=== PATIENT | male | born 1990 | race African-American/Black ===

== ENCOUNTER 2019-10-16 10:31 | Inpatient (IN) | payer BC ==
[2019-10-16 11:25] LABS: #Lymphocytes 1.4 thou/uL (1.20-3.40); #Monocytes 0.5 thou/uL (0.11-0.59); #Neutrophils 3.8 thou/uL (1.40-6.50); %Basophils 0.6 % (0.0-1.0); %Eosinophils 0.3 % (0.0-10.0); %Lymphocytes 24.8 % (21.0-51.0); %Monocytes 8.1 % (0.0-10.0); %Neutrophils 66.3 % (42.0-75.0); Hemoglobin 16.5 g/dL (14.0-18.0); Mean Corpuscular HGB CONC 34.1 g/dL (32.0-36.0); Mean Corpuscular Hemoglobin 30.4 pg (27.0-31.0); Mean Platelet Volume 8.3 fL (7.4-10.4); Platelet Count 242 thou/uL (130-400); RBC Distribution Width 12.8 % (11.5-14.5); Red Blood Cell (RBC) Count 5.44 mill/uL (4.70-6.10); White Blood Cell (WBC) Count 5.7 thou/uL (4.8-10.8)
[2019-10-16 11:30] LABS: Base Excess-Venous -13.5 mmol/L (-2.0 to 3.0); Bicarbonate (HCO3v) 12.4 mmol/L (22.0-28.0); CO2 Tension (PvCO2) 29.3 mmHg (40.0-50.0); Calcium, Ionized 1.21 mmol/L (See Comments:); Chloride 104 mmol/L (98-107); Hemoglobin - Calc 17.3 g/dL (14.0-18.0); Potassium 4.2 mmol/L (3.5-5.1); Sodium 131 mmol/L (138-145); T. Carbon Dioxide 13.3 mmol/L (22.0-28.0); vO2 Saturation-calc 73.7 % (60.0-85.0)
--- NOTE | 2019-10-16 11:37 | RAD ---
PORTABLE CHEST 1 VIEW: DATE: 10/16/2019. TIME: 10:56 AM. HISTORY: Altered mental status. FINDINGS: The heart size is normal. The lungs are expanded and clear. The bony thorax is normal. IMPRESSION: Normal exam. POS: [facility]
[2019-10-16] MEDS ORDERED: Insulin Regular 300 UNITS/3 ML VIAL ONE ×2 (11:44→11:45)
[2019-10-16 11:46] LABS: ALT (SGPT) 40 U/L (8-55); AST (SGOT) 18 U/L (5-34); Alkaline Phosphatase 98 U/L (40-110); Anion Gap 22 mmol/L (10-20); BUN (Urea Nitrogen) 21 mg/dL (8.9-20.6); Bilirubin, Total 0.6 mg/dL (0.2-1.2); Calc. Creatinine Clearance 0 mL/min (70-130); Calcium 9.3 mg/dL (7.8-10.44); Carbon Dioxide 11 mmol/L (22-29); Chloride 101 mmol/L (98-107); Estimated GFR-MDRD 50; Globulin 3.7 g/dL (2.4-3.5); Glucose 368 mg/dL (70-105); Lipase 56 U/L (8-78); Magnesium 2.1 mg/dL (1.6-2.6); Phosphorus 2.6 mg/dL (2.3-4.7); Potassium 4.1 mmol/L (3.5-5.1); Protein, Total 8.7 g/dL (6.0-8.3); Sodium 130 mmol/L (136-145)
[2019-10-16 11:50] LABS: Bacteria/HPF None Seen HPF (None Seen); Bilirubin Negative (Negative); Blood, Urine 1+ (Negative); Clarity Clear (Clear); Glucose, Urine (Dipstick) Greater than 1000 mg/dL (Negative); Leukocyte Negative Leu/uL (Negative); Nitrite Negative (Negative); Protein, Urine (Dipstick) 30 mg/dL (Neg-Trace); RBC/HPF None Seen HPF (0-3); Squamous Epithelial None Seen HPF (0-3); Urobilinogen Normal mg/dL (Less than 2); WBC/HPF 0-3 HPF (0-3)
[2019-10-16] MEDS ORDERED: Insulin Regular 100 units/100 ml in NS IVPB SCH (12:00)
[2019-10-16] MEDS ORDERED: Ondansetron PF 4 MG/2 ML Vial IVP PRN (14:00)
[2019-10-16] MEDS ORDERED: Ondansetron ODT 4 MG TAB PO PRN (14:00)
--- NOTE | 2019-10-16 14:04 | PDOC.HHP ---
Hospitalist HPI - History of Present Illness elevated blood sugar History of Present Illness: This is a 28 year old male with past medical history of prediabetes who presented to the ER with polydipsia, polyphagia, polyuria for the past one week. The patient also stated that he was having some generalized abdominal pain and nausea as well. He reports being diagnosed with prediabetes last year and was told to go on a diet. He followed that diet initially but then started eating a lot of sweets and fried food this past week. He went to his PCP who found his blood sugar to be over 300 and was concerned for DKA and advised him to go to the ER. The patient had a hemoglobin A1C done two days ago which was 11.6. His last hemoglobin A1C in 05/2019 was 6.5 which is actually consistent with diabetes. The patient denies fevers, chills, dysuria, cough, shortness of breath. ED Course: The patient had a BP of 144/100 on arrival, HR of 105. He had blood sugar of 368, pH of 7.2, elevated BHB of > 6 and bicarbonate of 12. He was given 10 units of insulin and was started on an insulin drip at 6 units/hour. He had a normal chest Xray Hospitalist ROS - Review of Systems Constitutional: denies: fever, chills Eyes: denies: pain, vision change ENT: denies: ear pain, ear discharge Respiratory: denies: cough, dry, shortness of breath Cardiovascular: denies: chest pain, palpitations, orthopnea, light headedness Gastrointestinal: reports: nausea, abdominal pain. denies: vomiting Genitourinary: denies: dysuria, frequency, incontinence Musculoskeletal: denies: neck pain, shoulder pain, arm pain Hospitalist History - Past Medical History Cardiac: reports: HTN - Past Surgical History Other Surgical History: None - Family History Other Family History: Mother and grandmother has diabetes type II - Social History Smoking Status: Current every day smoker (Patient dips snuff daily since he was 14) Alcohol: reports: Occassional - Exam General Appearance: NAD, awake alert General - other findings: morbidly obese Eye: PERRL, anicteric sclera ENT: normocephalic atraumatic, no oropharyngeal lesions Neck: supple, no JVD Heart: RRR, no murmur, no gallops, no rubs Respiratory: CTAB, no wheezes, no rales, no ronchi Gastrointestinal: soft, non-tender, non-distended, normal bowel sounds Extremities: no cyanosis, no clubbing, no edema Hospitalist Results - Labs Result Diagrams: 10/16/19 11:09 10/16/19 16:03 Lab results: WBC 5.7 thou/uL (4.8-10.8) 10/16/19 11:09 Hgb 16.5 g/dL (14.0-18.0) 10/16/19 11:09 Hct 48.4 % (42.0-52.0) 10/16/19 11:09 MCV 89.0 fL (78.0-98.0) 10/16/19 11:09 Plt Count 242 thou/uL (130-400) 10/16/19 11:09 Neutrophils % 66.3 % (42.0-75.0) 10/16/19 11:09 VBG pCO2 29.3 mmHg (40.0-50.0) L 10/16/19 11:28 VBG pO2 45.3 mmHg (35.0-45.0) H 10/16/19 11:28 Sodium 130 mmol/L (136-145) L 10/16/19 11:09 Potassium 4.1 mmol/L (3.5-5.1) 10/16/19 11:09 Chloride 101 mmol/L (98-107) 10/16/19 11:09 Carbon Dioxide 11 mmol/L (22-29) L 10/16/19 11:09 BUN 21 mg/dL (8.9-20.6) H 10/16/19 11:09 Creatinine 1.98 mg/dL (0.7-1.3) H 10/16/19 11:09 Glucose 368 mg/dL (70-105) H 10/16/19 11:09 Calcium 9.3 mg/dL (7.8-10.44) 10/16/19 11:09 Total Bilirubin 0.6 mg/dL (0.2-1.2) 10/16/19 11:09 AST 18 U/L (5-34) 10/16/19 11:09 ALT 40 U/L (8-55) 10/16/19 11:09 Alkaline Phosphatase 98 U/L (40-110) 10/16/19 11:09 Serum Total Protein 8.7 g/dL (6.0-8.3) H 10/16/19 11:09 Albumin 5.0 g/dL (3.5-5.0) 10/16/19 11:09 Lipase 56 U/L (8-78) 10/16/19 11:09 Urine Ketones Greater than 150 mg/dL (Negative) A 10/16/19 11:20 Urine Blood 1+ (Negative) A 10/16/19 11:20 Urine Nitrite Negative (Negative) 10/16/19 11:20 Ur Leukocyte Esterase Negative Manish/uL (Negative) 10/16/19 11:20 Urine RBC None Seen HPF (0-3) 10/16/19 11:20 Urine WBC 0-3 HPF (0-3) 10/16/19 11:20 Ur Squamous Epith Cells None Seen HPF (0-3) 10/16/19 11:20 Urine Bacteria None Seen HPF (None Seen) 10/16/19 11:20 Hospitalist H&P A/P - Plan Plan: This is a 28 year old male with hypertension, prediabetes in the past presenting with DKA DKA - glucose 350, elevated BHB with low bicarb and anion gap - continue with insulin drip - keep NPO for now. When gap resolves can begin feeding - HBA1C 11.6 - will need dietitian consult and diabetic education SUSHMA - creatinine improving from 1.98 to 1.46 - UA shows 30 proteinuria Hypertension - will monitor for now - hold off meds for now due to SUSHMA Tobacco abuse - consider nicotine patch Code status: full code
[2019-10-16] MEDS ORDERED: Dextrose 5% in Water 1,000 ML IV PRN (14:31)
[2019-10-16] MEDS ORDERED: NS 0.9% w/ 20 MEQ KCL 1,000 ML/1,000 ML BAG IV PRN ×2 (14:31)
[2019-10-16] MEDS ORDERED: Dextrose 50% Abboject 50 ML SYRINGE SLOW IVP PRN (14:31)
[2019-10-16] MEDS ORDERED: Dextrose 5 %-0.45 % NaCl 1,000 ML IV PRN (14:31)
[2019-10-16] MEDS ORDERED: Sodium Chloride 0.9% 1,000 ML IV PRN ×4 (14:31)
[2019-10-16] MEDS ORDERED: Magnesium Oxide 400 MG TAB PO PRN ×2 (14:32)
[2019-10-16] MEDS ORDERED: Potassium Chloride 40 MEQ in Premix Bag 1 BAG IVPB PRN (14:32)
[2019-10-16] MEDS ORDERED: CCU ELECTROLYTE REPLACEMENT PROTOCOL FS PRN (14:32)
[2019-10-16] MEDS ORDERED: PHOS-NAK 1 PKT PACK PO PRN ×2 (14:32)
[2019-10-16] MEDS ORDERED: Magnesium 2 GM/50 ML 2 GM in Premix Bag 1 BAG IVPB PRN (14:32)
[2019-10-16] MEDS ORDERED: Potassium Chloride 40 MEQ in Sodium Chloride 0.9% 250 ML 250 ML IVPB PRN (14:32)
[2019-10-16] MEDS ORDERED: Potassium Chloride 20 MEQ TAB PO PRN (14:32)
[2019-10-16] MEDS ORDERED: Potassium Phosphate 9 MMOL in Sodium Chloride 0.9% 100 ML IVPB PRN (14:32)
[2019-10-16] MEDS ORDERED: Potassium Phosphate 15 MMOL in Sodium Chloride 0.9% 250 ML 250 ML IV PRN (14:32)
[2019-10-16] MEDS ORDERED: Potassium Phosphate 12 MMOL in Sodium Chloride 0.9% 250 ML 250 ML IV PRN (14:32)
[2019-10-16] MEDS ORDERED: HUMULIN R 100 UNITS in Sodium Chloride 0.9% 100 ML IVPB SCH (14:45)
[2019-10-16 14:48] VITALS: BMI 40.8
[2019-10-16 16:25] LABS: BUN (Urea Nitrogen) 16 mg/dL (8.9-20.6); Calc. Creatinine Clearance 136 mL/min (70-130); Calcium 8.1 mg/dL (7.8-10.44); Chloride 115 mmol/L (98-107); Estimated GFR-MDRD 71; Glucose 166 mg/dL (70-105); Potassium 4.6 mmol/L (3.5-5.1); Sodium 136 mmol/L (136-145)
[2019-10-16 16:27] LABS: Carbon Dioxide Less than 8 mmol/L (22-29)
[2019-10-16] MEDS: D5 1/2 NS w/20 mEq KCL 1,000 ML IV PRN ×2 (16:45→22:14)
[2019-10-16 18:05] LABS: BUN (Urea Nitrogen) 16 mg/dL (8.9-20.6); Calc. Creatinine Clearance 136 mL/min (70-130); Calcium 8.1 mg/dL (7.8-10.44); Carbon Dioxide Less than 8 mmol/L (22-29); Chloride 117 mmol/L (98-107); Estimated GFR-MDRD 71; Glucose 154 mg/dL (70-105); Potassium 5.1 mmol/L (3.5-5.1); Sodium 137 mmol/L (136-145)
[2019-10-16 20:20] LABS: BUN (Urea Nitrogen) 13 mg/dL (8.9-20.6); Calc. Creatinine Clearance 141 mL/min (70-130); Calcium 8.2 mg/dL (7.8-10.44); Chloride 114 mmol/L (98-107); Estimated GFR-MDRD 74; Glucose 205 mg/dL (70-105); Potassium 4.2 mmol/L (3.5-5.1); Sodium 133 mmol/L (136-145)
[2019-10-16 20:33] LABS: Carbon Dioxide Less than 8 mmol/L (22-29)
[2019-10-16] MEDS ORDERED: Acetaminophen 325 MG TAB PO PRN (21:18)
[2019-10-16 23:40] LABS: Anion Gap 12 mmol/L (10-20); BUN (Urea Nitrogen) 11 mg/dL (8.9-20.6); Calc. Creatinine Clearance 148 mL/min (70-130); Carbon Dioxide 15 mmol/L (22-29); Chloride 110 mmol/L (98-107); Estimated GFR-MDRD 78; Potassium 3.5 mmol/L (3.5-5.1); Sodium 133 mmol/L (136-145)
[2019-10-16 23:41] LABS: Glucose 226 mg/dL (70-105)
[2019-10-17] MEDS: D5 1/2 NS w/20 mEq KCL 1,000 ML IV PRN ×2 (02:08→06:15)
[2019-10-17 03:53] LABS: Hemoglobin 14.1 g/dL (14.0-18.0); Mean Corpuscular HGB CONC 35.6 g/dL (32.0-36.0); Mean Corpuscular Hemoglobin 31.4 pg (27.0-31.0); Mean Corpuscular Volume 88.3 fL (78.0-98.0); Mean Platelet Volume 8.1 fL (7.4-10.4); Platelet Count 199 thou/uL (130-400); RBC Distribution Width 12.9 % (11.5-14.5); Red Blood Cell (RBC) Count 4.49 mill/uL (4.70-6.10); White Blood Cell (WBC) Count 5.3 thou/uL (4.8-10.8)
[2019-10-17 04:16] LABS: Anion Gap 12 mmol/L (10-20); BUN (Urea Nitrogen) 10 mg/dL (8.9-20.6); Calc. Creatinine Clearance 161 mL/min (70-130); Carbon Dioxide 15 mmol/L (22-29); Chloride 111 mmol/L (98-107); Estimated GFR-MDRD 86; Glucose 197 mg/dL (70-105); Potassium 3.5 mmol/L (3.5-5.1); Sodium 134 mmol/L (136-145)
[2019-10-17 09:06] LABS: Anion Gap 11 mmol/L (10-20); BUN (Urea Nitrogen) 8 mg/dL (8.9-20.6); Calc. Creatinine Clearance 177 mL/min (70-130); Calcium 8.1 mg/dL (7.8-10.44); Carbon Dioxide 14 mmol/L (22-29); Chloride 111 mmol/L (98-107); Estimated GFR-MDRD Greater than 90; Glucose 162 mg/dL (70-105); Potassium 3.4 mmol/L (3.5-5.1); Sodium 133 mmol/L (136-145)
[2019-10-17] MEDS ORDERED: Potassium Chloride 20 MEQ TAB PO SCH (09:30)
[2019-10-17] MEDS ORDERED: D5 0.9% NS w/ 20 mEq KCl 1,000 ML IV SCH (09:30)
[2019-10-17] MEDS: Enoxaparin Sodium 40 MG/0.4 ML SYRINGE SC SCH (10:19)
[2019-10-17] MEDS ORDERED: Insulin Glargine 15 UNITS in Pre-Filled Syringe 1 EACH SC SCH (11:00)
--- NOTE | 2019-10-17 15:23 | PDOC.HOSPP ---
- Subjective Encounter Date: 10/17/19 Encounter Time: 11:30 Subjective: The patient is doing much better. No abd pain, nausea or vomiting. He is anxious to go home soon - Objective Vital Signs & Weight: Vital Signs (12 hours) Temp Pulse Ox 10/17/19 11:22 96.4 F L 10/17/19 08:00 97 10/17/19 07:09 97.3 F L 10/17/19 04:00 98.1 F Weight Admit Weight 276 lb Weight 276 lb 3.2 oz Most Recent Monitor Data Heart Rate from ECG 96 NIBP 202/102 NIBP BP-Mean 135 Respiration from ECG 20 SpO2 97 I&O: 10/16/19 10/17/19 10/18/19 06:59 06:59 06:59 Intake Total 4350.1 480 Output Total 1850 1325 Balance 2500.1 -845 Result Diagrams: 10/17/19 03:17 10/17/19 08:31 Additional Labs: Accuchecks 10/17/19 10/17/19 10/17/19 13:07 12:16 11:04 POC Glucose 182 H 162 H 155 H 10/17/19 10/17/19 10/17/19 09:15 08:03 07:16 POC Glucose 165 H 156 H 157 H 10/17/19 10/17/19 10/17/19 06:22 05:08 04:27 POC Glucose 161 H 200 H 207 H 10/17/19 10/17/19 10/17/19 03:16 02:11 01:15 POC Glucose 198 H 213 H 225 H 10/17/19 10/16/19 10/16/19 00:15 23:17 22:17 POC Glucose 230 H 217 H 221 H 10/16/19 10/16/19 10/16/19 21:11 20:18 19:09 POC Glucose 234 H 213 H 195 H 10/16/19 10/16/19 10/16/19 18:09 17:24 16:14 POC Glucose 165 H 162 H 167 H Hospitalist ROS - Review of Systems Constitutional: denies: fever, chills - Medication Medications: Active Medications Generic Name Dose Route Start Last Admin Trade Name Freq PRN Reason Stop Dose Admin Acetaminophen 650 mg 10/16/19 21:18 10/16/19 21:32 Tylenol PO 650 mg Q4H PRN Administration Headache/Fever or Pain Enoxaparin Sodium 40 mg 10/17/19 09:00 10/17/19 10:19 Lovenox SC 40 mg 0900 KYLIE Administration Potassium Chloride/Sodium Chloride 1,000 ml in 1,000 mls @ 500 mls/hr 14:31 10/16/19 14:45 Ns 0.9% W/ 20 Meq Kcl IV 1,000 mls .Q2H PRN Administration STEP 2: DKA PROTOCOL Protocol Sodium Chloride 10 ml 10/16/19 21:00 10/17/19 10:20 Flush - Normal Saline IVF 10 ml Q12HR KYLIE Administration - Exam General Appearance: NAD General - other findings: morbidly obese Eye: PERRL, anicteric sclera ENT: normocephalic atraumatic, no oropharyngeal lesions Neck: supple, no JVD Heart: RRR, no murmur, no gallops, no rubs Respiratory: CTAB, no wheezes, no rales, no ronchi Gastrointestinal: soft, non-tender, non-distended, normal bowel sounds, no palpable masses, no hepatomegaly, no splenomegaly, no bruit Extremities: no cyanosis, no clubbing, no edema Skin: normal turgor, no lesions, no rashes Neurological: cranial nerve grossly intact, normal sensation to touch, no focal deficits, no new deficit Hosp A/P - Plan This is a 28 year old male with hypertension, prediabetes in the past presenting with DKA DKA - resolved, off insulin drip now - BHB down to 1 - start lantus 15 units likely bid. Insulin sliding scale - start metformin - transfer to the floor - ordered regular diet Hypertensive urgency - BP > 200 systolic - will start hydralazine 25 mg tid Hypokalemia - potassium 3.4, recheck in am Hyponatremia - sodium 133, switched to D5NS - will recheck tomorrow SUSHMA - resolved Tobacco abuse - consider nicotine patch Code status: full code
[2019-10-17] MEDS ORDERED: hydrALAZINE 25 MG TAB PO SCH (15:30)
[2019-10-17] MEDS: HumaLOG 300 UNITS/3 ML VIAL SC PRN (16:49)
[2019-10-17] MEDS: metFORMIN 500 MG TAB PO SCH (16:50)
[2019-10-17] MEDS ORDERED: Insulin Glargine 40 UNITS in Pre-Filled Syringe 1 EACH SC SCH (21:00)
[2019-10-17] MEDS: hydrALAZINE 25 MG TAB PO SCH (21:37)
[2019-10-18 05:42] LABS: Mean Corpuscular HGB CONC 33.8 g/dL (32.0-36.0); Mean Corpuscular Hemoglobin 29.7 pg (27.0-31.0); Mean Platelet Volume 8.2 fL (7.4-10.4); Platelet Count 212 thou/uL (130-400); RBC Distribution Width 13.1 % (11.5-14.5); Red Blood Cell (RBC) Count 4.71 mill/uL (4.70-6.10); White Blood Cell (WBC) Count 4.6 thou/uL (4.8-10.8)
[2019-10-18 05:56] LABS: Anion Gap 14 mmol/L (10-20); BUN (Urea Nitrogen) 8 mg/dL (8.9-20.6); Calc. Creatinine Clearance 172 mL/min (70-130); Calcium 8.7 mg/dL (7.8-10.44); Carbon Dioxide 17 mmol/L (22-29); Chloride 106 mmol/L (98-107); Estimated GFR-MDRD Greater than 90; Glucose 271 mg/dL (70-105); Potassium 3.5 mmol/L (3.5-5.1); Sodium 133 mmol/L (136-145)
[2019-10-18] MEDS: HumaLOG 300 UNITS/3 ML VIAL SC PRN ×4 (06:26→20:47)
[2019-10-18] MEDS: metFORMIN 500 MG TAB PO SCH ×2 (09:38→19:31)
[2019-10-18] MEDS: Insulin Glargine 35 UNITS in Pre-Filled Syringe 1 EACH SC SCH (09:39)
[2019-10-18] MEDS: hydrALAZINE 25 MG TAB PO SCH ×3 (09:39→20:46)
[2019-10-18] MEDS: Enoxaparin Sodium 40 MG/0.4 ML SYRINGE SC SCH (09:39)
--- NOTE | 2019-10-18 16:40 | PDOC.HOSPP ---
- Subjective Encounter Date: 10/18/19 Encounter Time: 11:30 Subjective: CC: diabetes The patient is doing better. Denies nausea, vomiting, abd pain. No polydipsia, polyuria, polyphagia. He states he received his diabetic education - Objective Vital Signs & Weight: Vital Signs (12 hours) Temp Pulse Resp BP BP Pulse Ox 10/18/19 13:53 96 141/79 H 10/18/19 11:59 98.3 F 96 16 141/79 H 97 10/18/19 09:39 101 H 10/18/19 07:50 98.2 F 101 H 16 102/71 97 Weight Admit Weight 276 lb Weight 276 lb 3.2 oz Most Recent Monitor Data Heart Rate from ECG 99 NIBP 119/83 NIBP BP-Mean 95 Respiration from ECG 22 SpO2 97 I&O: 10/17/19 10/18/19 10/19/19 06:59 06:59 06:59 Intake Total 4350.1 2842 Output Total 1850 1600 Balance 2500.1 1242 Result Diagrams: 10/18/19 04:52 10/18/19 04:52 Additional Labs: Accuchecks 10/18/19 10/18/19 10/18/19 16:29 12:06 06:27 POC Glucose 327 H 294 H 249 H 10/17/19 10/17/19 19:25 16:41 POC Glucose 332 H 314 H Hospitalist ROS - Review of Systems Constitutional: denies: fever, chills ENT: denies: ear pain, ear discharge Respiratory: denies: cough, dry, shortness of breath, pleuritic pain Cardiovascular: denies: chest pain, palpitations Gastrointestinal: denies: nausea, vomiting, abdominal pain - Medication Medications: Active Medications Generic Name Dose Route Start Last Admin Trade Name Freq PRN Reason Stop Dose Admin Acetaminophen 650 mg 10/16/19 21:18 10/16/19 21:32 Tylenol PO 650 mg Q4H PRN Administration Headache/Fever or Pain Enoxaparin Sodium 40 mg 10/17/19 09:00 10/18/19 09:39 Lovenox SC 40 mg 0900 KYLIE Administration Hydralazine HCl 25 mg 10/17/19 21:00 10/18/19 13:53 Apresoline PO 25 mg TID KYLIE Administration Potassium Chloride/Sodium Chloride 1,000 ml in 1,000 mls @ 500 mls/hr 14:31 10/16/19 14:45 Ns 0.9% W/ 20 Meq Kcl IV 1,000 mls .Q2H PRN Administration STEP 2: DKA PROTOCOL Protocol Insulin Glargine 35 units/ 0.35 mls @ 0 mls/hr 10/18/19 09:00 10/18/19 09:39 Miscellaneous Medication SC 0.35 mls QAM KYLIE Administration Insulin Human Lispro 0 units 10/17/19 15:17 10/18/19 13:51 Humalog SC 4 unit .MILD SLIDING SCALE PRN Administration Mild Correctional Scale Metformin HCl 500 mg 10/17/19 17:00 10/18/19 09:38 Glucophage PO 500 mg BID-WM KYLIE Administration Sodium Chloride 10 ml 10/16/19 21:00 10/18/19 09:39 Flush - Normal Saline IVF 10 ml Q12HR KYLIE Administration - Exam General Appearance: NAD, awake alert General - other findings: morbidly obese Eye: PERRL, anicteric sclera ENT: normocephalic atraumatic, no oropharyngeal lesions Neck: supple, symmetric, no JVD Heart: RRR, no murmur, no gallops, no rubs Respiratory: CTAB, no wheezes, no rales, no ronchi Gastrointestinal: soft, non-tender, non-distended, normal bowel sounds Extremities: no cyanosis, no clubbing, no edema Skin: normal turgor, no lesions, no rashes Neurological: cranial nerve grossly intact, normal sensation to touch, no focal deficits, no new deficit Musculoskeletal: normal tone, normal strength, no muscle wasting Hosp A/P - Plan This is a 28 year old male with hypertension, prediabetes in the past presenting with DKA DKA Morbid obesity - resolved, off insulin drip now. Patient likely with type II Diabetes due to morbid obesity - BHB down to 1 - received total of 30 units lantus 10/16. Increased to 37 units lantus 10/17 in the morning, however blood sugar up to 327. Currently on mild sliding scale, will add 7 units AC TID on top of sliding scale. - continue metformin 500 mg bid - started glipizide 2.5 mg daily - HbA1C 11.6 with PCP few days ago Hypertensive urgency - started hydralazine 25 mg po tid. BP 140/90 currently Hypokalemia - resolved Hyponatremia - mild at 134, likely from hyperglycemia SUSHMA - resolved Tobacco abuse - consider nicotine patch Code status: full code
--- NOTE | 2019-10-18 16:46 | PDOC.HOSPP ---
- Subjective Encounter Date: 10/18/19 Encounter Time: 10:00 Subjective: The patient feels much better. He is coughing up less phlegm. No chest pain. Ambulatory eval showed patietn dropped to 83% on room air on ambulation. 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 - Objective Vital Signs & Weight: Vital Signs (12 hours) Temp Pulse Resp BP BP Pulse Ox 10/18/19 13:53 96 141/79 H 10/18/19 11:59 98.3 F 96 16 141/79 H 97 10/18/19 09:39 101 H 10/18/19 07:50 98.2 F 101 H 16 102/71 97 Weight Admit Weight 276 lb Weight 276 lb 3.2 oz Most Recent Monitor Data Heart Rate from ECG 99 NIBP 119/83 NIBP BP-Mean 95 Respiration from ECG 22 SpO2 97 I&O: 10/17/19 10/18/19 10/19/19 06:59 06:59 06:59 Intake Total 4350.1 2842 Output Total 1850 1600 Balance 2500.1 1242 Result Diagrams: 10/18/19 04:52 10/18/19 04:52 Additional Labs: Accuchecks 10/18/19 10/18/19 10/18/19 16:29 12:06 06:27 POC Glucose 327 H 294 H 249 H 10/17/19 10/17/19 19:25 16:41 POC Glucose 332 H 314 H Hospitalist ROS - Review of Systems Constitutional: denies: fever, chills - Medication Medications: Active Medications Generic Name Dose Route Start Last Admin Trade Name Freq PRN Reason Stop Dose Admin Acetaminophen 650 mg 10/16/19 21:18 10/16/19 21:32 Tylenol PO 650 mg Q4H PRN Administration Headache/Fever or Pain Enoxaparin Sodium 40 mg 10/17/19 09:00 10/18/19 09:39 Lovenox SC 40 mg 0900 KYLIE Administration Hydralazine HCl 25 mg 10/17/19 21:00 10/18/19 13:53 Apresoline PO 25 mg TID KYLIE Administration Potassium Chloride/Sodium Chloride 1,000 ml in 1,000 mls @ 500 mls/hr 14:31 10/16/19 14:45 Ns 0.9% W/ 20 Meq Kcl IV 1,000 mls .Q2H PRN Administration STEP 2: DKA PROTOCOL Protocol Insulin Glargine 35 units/ 0.35 mls @ 0 mls/hr 10/18/19 09:00 10/18/19 09:39 Miscellaneous Medication SC 0.35 mls QAM KYLIE Administration Insulin Human Lispro 0 units 10/17/19 15:17 10/18/19 13:51 Humalog SC 4 unit .MILD SLIDING SCALE PRN Administration Mild Correctional Scale Metformin HCl 500 mg 10/17/19 17:00 10/18/19 09:38 Glucophage PO 500 mg BID-WM KYLIE Administration Sodium Chloride 10 ml 10/16/19 21:00 10/18/19 09:39 Flush - Normal Saline IVF 10 ml Q12HR KYLIE Administration - Exam General Appearance: NAD, awake alert General - other findings: morbid obesity Eye: PERRL, anicteric sclera ENT: normocephalic atraumatic, no oropharyngeal lesions Neck: supple, no JVD Heart: RRR, no murmur, no gallops, no rubs Respiratory: CTAB, no wheezes, no rales, no ronchi Gastrointestinal: soft, non-tender, non-distended, normal bowel sounds Extremities: no cyanosis, no clubbing, no edema Skin: normal turgor, no lesions, no rashes Neurological: cranial nerve grossly intact, normal sensation to touch, no focal deficits, no new deficit Musculoskeletal: normal tone, normal strength, no muscle wasting Hosp A/P - Plan This is a 28 year old male with hypertension, prediabetes in the past presenting with DKA DKA Morbid obesity - resolved, off insulin drip now. Patient likely with type II Diabetes due to morbid obesity - BHB down to 1 - received total of 30 units lantus 10/16. Increased to 37 units lantus 10/17 in the morning, however blood sugar up to 327. Currently on mild sliding scale, will add 7 units AC TID on top of sliding scale. - continue metformin 500 mg bid - started glipizide 2.5 mg daily - HbA1C 11.6 with PCP few days ago Hypertensive urgency - started hydralazine 25 mg po tid. BP 140/90 currently Hypokalemia - resolved Hyponatremia - mild at 134, likely from hyperglycemia SUSHMA - resolved Tobacco abuse - consider nicotine patch Code status: full code
[2019-10-18] MEDS: HumaLOG 300 UNITS/3 ML VIAL SC SCH (17:06)
[2019-10-18] MEDS ORDERED: Insulin Glargine 15 UNITS in Pre-Filled Syringe 1 EACH SC SCH (21:00)
[2019-10-19] MEDS: HumaLOG 300 UNITS/3 ML VIAL SC PRN ×2 (06:17→11:54)
[2019-10-19 07:32] VITALS: BP 133/78; TEMP 98.1
[2019-10-19] MEDS: metFORMIN 500 MG TAB PO SCH (08:19)
[2019-10-19] MEDS: HumaLOG 300 UNITS/3 ML VIAL SC SCH ×2 (08:19→11:54)
[2019-10-19] MEDS: Enoxaparin Sodium 40 MG/0.4 ML SYRINGE SC SCH (08:19)
[2019-10-19] MEDS: hydrALAZINE 25 MG TAB PO SCH ×2 (08:20→14:26)
[2019-10-19] MEDS: Insulin Glargine 35 UNITS in Pre-Filled Syringe 1 EACH SC SCH (08:20)
--- NOTE | 2019-10-20 02:07 | DIS ---
DATE OF ADMISSION: 10/16/2019 DATE OF DISCHARGE: 10/19/2019 DISCHARGE DIAGNOSES: 1. New onset insulin-dependent diabetes mellitus. 2. Hypertension. 3. Hypokalemia. 4. Hyponatremia. 5. Acute kidney injury. 6. Tobacco abuse. DISCHARGE MEDICATIONS: 1. Lantus 30 units subcu in the morning and at bedtime. 2. Metformin 500 mg orally twice daily. 3. Amlodipine 10 mg orally daily. HISTORY OF PRESENT ILLNESS AND HOSPITAL COURSE: The patient is a 28-year-old male with past medical history of prediabetes, who presented to the ER with polydipsia, polyphagia, and polyuria for 1 week. The patient was also complaining of generalized abdominal pain and nausea. He went to his PCP and his blood sugar was found to be greater than 300, and he was subsequently sent to the ER. In the ER, his glucose level was over 300 with elevated beta hydroxybutyric acid and anion gap acidosis consistent with DKA. He was admitted to the ICU and started on insulin drip, IV fluids, and electrolyte replacement per DKA protocol. This has led to improvement in his sugar levels and improvement in his creatinine level as well, which was likely high due to dehydration. The patient was subsequently transitioned to subcu Lantus after resolution of his anion gap acidosis. His post ICU stay was unremarkable. Job ID: [id number]
== END 2019-10-19 15:08 | disposition home or self-care (01) | DRG 638 ==
LOC: ERS 10:31 → IMCU/EMU 13:59 → T4-A 10-17 18:18
PROVIDERS: ADMIT Internal Medicine; ATTEND Internal Medicine
DX: E11.10 Type 2 diabetes mellitus with ketoacidosis without coma (principal); N17.9 Acute kidney failure, unspecified; E87.1 Hypo-osmolality and hyponatremia; Z68.41 Body mass index [BMI] 40.0-44.9, adult; I10 Essential (primary) hypertension; E87.6 Hypokalemia; F17.210 Nicotine dependence, cigarettes, uncomplicated; R63.1 Polydipsia; R63.2 Polyphagia; R35.8 Other polyuria; E86.0 Dehydration; F32.9 Major depressive disorder, single episode, unspecified; I16.0 Hypertensive urgency; E66.01 Morbid (severe) obesity due to excess calories
CPT/HCPCS: 36415; 36416; 71045; 80048; 80053; 80061; 81003; 81015; 82010; 82043; 82330; 82803; 83036; 83690; 83735; 84100; 85025; 85027; 96361; 96365; J1650; J1815; J3480; J3490